=== PATIENT | female | born 1995 | race Two or more races ===

== ENCOUNTER 2017-12-18 13:15 | Inpatient (IN) | payer OTHER ==
[~2017-12-18] VITALS: Ht 162.6 cm; Wt 3.2 kg
[2018-01-13] MEDS ORDERED: PRENATABS RX T1 EACH PO (15:53)
== END 2018-01-17 13:17 | DRG 788 ==
LOC: LDR 01-13 15:04 → OB/GYN 01-13 15:04 → LDR 01-15 13:15 → OB/GYN 01-17 13:17
PROVIDERS: Obstetrics & Gynecology
PROC: 3E0P7VZ Introduction of Hormone into Female Reproductive, Via Natural or Artificial Opening (ICD-10-PCS; 2018-01-13)
PROC: 3E033VJ Introduction of Other Hormone into Peripheral Vein, Percutaneous Approach (ICD-10-PCS; 2018-01-13)
PROC: 4A1HXCZ Monitoring of Products of Conception, Cardiac Rate, External Approach (ICD-10-PCS; 2018-01-13)
PROC: 10D00Z1 Extraction of Products of Conception, Low, Open Approach (ICD-10-PCS; principal; 2018-01-14 18:00)
DX: O61.0 Failed medical induction of labor (principal); Z3A.39 39 weeks gestation of pregnancy; Z37.0 Single live birth

== ENCOUNTER 2018-01-09 10:19 | Outpatient (CLI) | payer OTHER | END 2018-01-09 11:25 | disposition home or self-care (01) | LOC: NST 10:19 | DX: Z34.83 Encounter for supervision of other normal pregnancy, third trimester (principal) ==

== ENCOUNTER 2018-01-12 09:33 | Outpatient (CLI) | payer OTHER ==
[2018-01-13] MEDS ORDERED: PRENATABS RX T1 EACH PO (15:53)
== END 2018-01-12 09:59 | disposition home or self-care (01) ==
LOC: NST 09:33
DX: Z34.03 Encounter for supervision of normal first pregnancy, third trimester (principal)